=== PATIENT | female | born 1940 | race African-American/Black ===

== ENCOUNTER 2019-10-16 00:01 | Observation (INO) ==
[2019-10-16 00:22] LABS: BASO# 0.04 X1000 (0.0-0.2); BASO% 0.4 % (0.0-0.8); EOS# 0.44 X1000 (0.0-0.7); EOS% 4.5 % (0.0-10.0); HEMATOCRIT 39.7 % (37.0-47.0); HEMOGLOBIN 13.1 g/dL (12.0-16.0); IMM GRAN# 0.02 X1000 (0.0-0.04); IMM GRAN% 0.2 % (0.0-0.5); LYMPH# 1.15 X1000 (1.2-3.4); LYMPH% 11.7 % (20.5-51.1); MCH 28.3 PG (27-31); MCV 85.7 FL (81-99); MONO# 1.06 X1000 (0.11-0.59); MONO% 10.8 % (1.7-9.3); MPV 9.7 FL (7.4-10.4); NEUT# 7.12 X1000 (1.4-6.5); NEUT% 72.4 % (42.2-75.2); PLT 239 X1000 (130-400); RBC 4.63 XMIL (4.2-5.4); RDW 15.3 % (11.5-14.5); WBC 9.83 X1000 (4.8-10.8)
--- NOTE | 2019-10-16 00:26 | PROVIDER DOCUMENTATION ---
This chart was entered by Marci Marrero Scribe, acting as scribe for Bello Rubio MD. HPI-Neurological Disorder - General Chief Complaint: Stroke-Like Symptoms Stated Complaint: STROKE LIKE SYMPTOMS Time Seen by Provider: 10/16/19 00:03 Source: patient Allergies/Adverse Reactions: Patient Allergies Allergy/AdvReac Type Severity Reaction Status Date / Time Penicillins Allergy RASH Verified 10/16/19 01:21 Home Medications: Home Medication List Medication Instructions Recorded Confirmed Last Taken Type Apixaban [Eliquis] 2.5 mg PO DAILY 07/30/19 10/16/19 Unknown History Butalbital/Acetaminophen 1 ea PO 4XDAY PRN PRN #20 tab 07/30/19 10/16/19 Unknown Rx [Butalbital-Acetaminophn 50-300] Butalbital/Aspirin/Caffeine 1 ea PO 4XDAY PRN PRN #20 cap 07/30/19 10/16/19 Unknown Rx [Fiorinal 50-325-40 mg Capsule] Diltiazem HCl 60 mg PO TID 07/30/19 10/16/19 Unknown History Potassium Chloride 10 meq PO DAILY 07/30/19 10/16/19 Unknown History Travoprost 0.004% Oph Soln 1 ml BOTH EYES DAILY 07/30/19 10/16/19 Unknown His tory [Travatan 0.004% Oph Soln] - History of Present Illness-Neuro Nature of Presenting Problem: Pt is an 79 yobf with history of atrial fibrillation and CVA ,currently taking Eloquis, who presents by POV with her family after experiencing left sided weakness of her left face. Pt 's family reports that she was last normal this afternoon. Pt says that she got up to got to the bathroom to take out her teeth and that is when she noticed the new weakness on the left side of her face. Pt is alert,ambulatory, and nontoxic in appearance. Initial NIH stroke score of 1. Patient is not a candidate for thrombolytic therapy due to concurrent use of blo od thinner (Eloquis) and duration of symptoms. Followed by Dr. Del Valle and Dr. Morales. Severity: reports: mild Onset/Duration: reports: abrupt, just prior to arrival, 1-3 hours ago Timing: reports: still present Context: reports: facial droop (left) Approximate time patient was last seen normal?: 18:00 (family states that hayde wilks was last time she was normal) Any recent trauma/injury?: reports: none Character of Deficits: reports: new weakness (left sided facial droop in check) New weakness or altered sensation location:: reports: left facial (check) Cognitive Baseline: alert, oriented x3 Gait Baseline: walks without assistance Associated Symptoms: denies: decreased ability to walk or stand, fainting, dizziness, confusion, fever/chills, nausea, numbness in legs/feet, slurred speech, tingling in legs/feet, trouble walking, vomiting, vision changes Similar Symptoms Previously?: Yes (pt had a CVA in June 2019) Review of Systems - Adult - REVIEW OF SYSTEMS - ADULT Constitutional: denies: chills, fever Eyes: denies: decreased vision, blurred vision Ears, Nose, Mouth & Throat: reports: no symptoms reported Cardiovascular: denies: chest pain, syncope Respiratory: denies: cough, shortness of breath Gastrointestinal: denies: diarrhea, nausea, vomiting Genitourinary: reports: no symptoms reported Musculoskeletal: reports: no symptoms reported Integumentary: reports: no symptoms reported Neurological: reports: other (left sided facial droop in check) Psychiatric: reports: no symptoms reported Endocrine: reports: no symptoms reported Hematologic/Lymphatic: reports: no symptoms reported Allergic/Immunologic: reports: no symptoms reported All Other Systems: Reviewed and Negative Past History - Adult - PAST MEDICAL HISTORY-ADULT Review of Records: reports: Old Records Reviewed, Nursing Assessment Review, Medications Reviewed, Social history reviewed & non-contributory. Major Childhood Illnesses: reports: denies history Cardiovascular: reports: A-Fib, HTN Respiratory: reports: denies history Gastrointestinal: reports: cancer (colon), GERD Obstetrical/Gynecological: reports: denies history Genitourinary: reports: denies history Musculoskeletal: reports: denies history Neurological: reports: CVA Endocrine/Immune: reports: denies history Other Conditions: reports: denies history - PRIOR SURGERIES/PROCEDURES Surgical/Procedure History: reports: BTL, other (colectomy) - PRIOR HOSPITALIZATIONS Prior Hospitalizations: reports: none - IMMUNIZATION STATUS Childhood Immunizations: See Nurse Assessment Flu Vaccine: See Nurse Assessment - FAMILY HISTORY Family History: reviewed, not pertinent - SOCIAL HISTORY Smoking: cigarettes, less than 1 pack/day Provider spent 3-5 mins advising pt. on dangers of tobacco.: Discussed manners to quit use, and f/u contacts for add'l counseling. Substance Use: denies Living Situation: family Physical Exam- Neurological - Physical Exam-Neuro Initial Vital Signs Reviewed: Yes General Appearance: appears well, alert, no apparent distress Eye Exam: bilateral eye: normal inspection, PERRL, EOMI HENMT: normocephalic/atraumatic, moist mucous membranes Head Injury: no evidence of injury Neck: non-tender, full range of motion, supple Respiratory: chest non-tender, lungs clear, normal breath sounds, no respiratory distress Cardiovascular: normal peripheral pulses, irregularly irregular Abdominal Exam: non tender, soft Lymphatic: no adenopathy Extremity: normal range of motion, non-tender, normal gait, no pedal edema, no calf tenderness 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 Exam: normal hearing, normal speech, PERRL, facial droop (left sided check) Motor/Sensory: no motor deficit, no sensory deficit, no pronator drift Integumentary: normal color, normal turgor, warm/dry Psych/Mental Status: normal thought content, normal thought process, oriented x 3, depressed affect - Glascow Coma Scale Best Eye Response: (4) open spontaneously Best Verbal Response: (5) oriented Best Motor Response: (6) obeys commands Total Glascow Score: 15 Progress - PLAN OF CARE/RESULTS Progress/Plan/Lab Results: Vital Signs - 8 hr 10/16/19 00:10 10/16/19 00:12 Temperature 98.3 F Pulse Rate 75 Respiratory Rate 21 Blood Pressure 155/99 O2 Sat by Pulse Oximetry 97 Laboratory Results - last 24 hr 10/16/19 10/16/19 10/16/19 00:11 00:11 00:11 WBC 9.83 RBC 4.63 Hgb 13.1 Hct 39.7 MCV 85.7 MCH 28.3 MCHC 33.0 RDW Std Deviation 15.3 H Plt Count 239 MPV 9.7 Immature Gran % (Auto) 0.2 Neut % (Auto) 72.4 Lymph % (Auto) 11.7 L Millard % (Auto) 10.8 H Eos % (Auto) 4.5 Baso % (Auto) 0.4 Immature Gran # (Auto) 0.02 Neut # (Auto) 7.12 H Lymph # (Auto) 1.15 L Millard # (Auto) 1.06 H Eos # (Auto) 0.44 Baso # (Auto) 0.04 PT INR PTT (Actin FS) Sodium 143 Potassium 4.1 Chloride 107 Carbon Dioxide 21 L Anion Gap 15 BUN 17 Creatinine 0.8 Estimated GFR/1.73 m2 > 60 BUN/Creatinine Ratio 21 Glucose 168 H POC Glucose Calculated Osmolality 290 Calcium 8.9 Total Bilirubin 0.20 AST 28 ALT 16 Alkaline Phosphatase 113 H Troponin T High Sens 9 Total Protein 7.5 Albumin 4.1 Globulin 3.0 Albumin/Globulin Ratio 1.0 10/16/19 10/16/19 00:11 01:07 WBC RBC Hgb Hct MCV MCH MCHC RDW Std Deviation Plt Count MPV Immature Gran % (Auto) Neut % (Auto) Lymph % (Auto) Millard % (Auto) Eos % (Auto) Baso % (Auto) Immature Gran # (Auto) Neut # (Auto) Lymph # (Auto) Millard # (Auto) Eos # (Auto) Baso # (Auto) PT 14.3 INR 1.06 PTT (Actin FS) 39.9 Sodium Potassium Chloride Carbon Dioxide Anion Gap BUN Creatinine Estimated GFR/1.73 m2 BUN/Creatinine Ratio Glucose POC Glucose 124 H Calculated Osmolality Calcium Total Bilirubin AST ALT Alkaline Phosphatase Troponin T High Sens Total Protein Albumin Globulin Albumin/Globulin Ratio Orders Category Date Time Status Admit - [facility] Routine AdmDCTranf 10/16/19 03:02 Active Cardiac Monitoring DIRECTED Care 10/16/19 00:09 Active Finger Stick Blood Sugar (ED) DIRECTED Care 10/16/19 00:09 Completed Neurological Check Q4H Care 10/16/19 03:04 Ordered Oxygen Therapy- ED Nursing DIRECTED Care 10/16/19 00:09 Active Resuscitation Status Routine Care 10/16/19 03:02 Ordered Saline Loc NOW Care 10/16/19 00:09 Active Vital Signs Order Q 4-HR ASSESS Care 10/16/19 03:02 Ordered Z-Document. for Tele Applied ORDERED Care 10/16/19 03:03 Ordered NPO Diet 10/16/19 03:04 Ordered CHEST-PORTABLE [RAD] Stat Exams 10/16/19 00:[address] HEAD W/O CONTRAST [CT] Stat Exams 10/16/19 00:09 Taken CBC WITH ELECTRONIC DIFF [HEME] Stat Lab 10/16/19 00:11 Completed COMPREHENSIVE METABOLIC PANEL [CHEM] Stat Lab 10/16/19 00:11 Completed PROTIME WITH INR [COAG] Stat Lab 10/16/19 00:11 Completed PTT [COAG] Stat Lab 10/16/19 00:11 Completed TROPONIN T HIGH SENSITIVITY Stat Lab 10/16/19 00:11 Completed Oxygen Device Routine Oth 10/16/19 03:04 Active Telemetry [OM.EQ] Routine Oth 10/16/19 03:02 Active EKG [EKG] Stat Ther 10/16/19 00:09 Draft Transfer/Admit Order [TRANSFER] Routine Transfer 10/16/19 03:04 Ordered Result Diagrams: 10/16/19 00:11 10/16/19 00:11 - REASSESSMENT Reassessment #1 Time Reassessed: 01:10 Status: unchanged - EKG 1 Time of EKG reading by physician:: 01:10 EKG Read and Signed by:: Bello Rubio (No STEMI) EKG Interpretation (*Must complete 3 of following elements*): Abnormal Rate: 64 Rhythm: Atrial fibrillation Minerva: normal Comments: Nonspecific T wave abnomality - XRAY 1 XRAY Study: Chest Comparison with other Films: no changes (Dr. Rubio compared to June 2019 [facility] x-ray) XRAY Interpretation: Dr. Rubio: cardiomegaly - CT/MRI 1 CT Study: Head Impression: Normal ([facility] Deidre Patton DO; Impression: 1. No acute intracranial process. 2. Stable chronic changes.) - CONSULTS/PCP/HOSPITALIST Notification #1 *Consult/PCP/Hospitalist*: Dr. Del Valle Reason/Comments: called his phone at [phone] and left message #2 Consult: Dr. Daley Time Discussed: 02:50 Reason/Comments: admit to Dr. Del Valle who will see patient this am Consult Disposition: Admit Departure - Departure Date of Disposition Decision: 10/16/19 Time of Disposition Decision: 03:06 DIAGNOSIS: Facial weakness CVA (cerebral vascular accident) Qualifiers: CVA mechanism: unspecified Qualified Code(s): I63.9 - Cerebral infarction, unspecified Disposition: ADMITTED INPATIENT 09 Certified Medical Emergency: Emergent Condition: Stable Referrals and Follow-Ups: None,PCP [NON-STAFF PROVIDER] - - Critical Care Note This patient required my direct & personal management of CC.: No Attestation - Physician/ JENNIFER Attestation Patient care was provided by Advanced Practice Provider:: No The physician spent face to face time with patient:: Yes Advanced Practice Provider documentation review:: Supervising physician onsite and consulted in the evaluation and care of this patient. The physician did have a face to face encounter with the patient. - NIH Stroke Scale Level of Consciousness: 0-Alert LOC Questions (ask month and age): 0-Answers Both Correctly LOC Commands (ask to open & close eyes;make a fist, let go): 0-Obeys Both Correctly Best Gaze (horizontal eye movement): 0-Normal Visual (use finger movement, counting or visual threat): 0-No Visual Loss Facial Palsy (show teeth or raise eyebrows & close eyes tght: 1-Minor Paralysis (left sided check only) Motor Function-left arm: 0-Normal Motor Function-right arm: 0-Normal Motor Function-left le-Normal Motor Function-right le-Normal Limb Ataxia(ofwnju-ftsp-woqlas, or heel to bush): 0-No Ataxia Sensory(pin prick to face,arms,trunk,legs-compare side/side): 0-No Ataxia Best Language(name item/read sentence.Ex-Down to Earth): 0-No Aphasia Dysarthria(Pt read words or say words Ex.Mama,Tip-Top,Thanks: 0-Normal Articulation Extinction and Inattention: 0-Normal NIH Total Score: 1 Modified Hancock Score Criteria: 1-no significant disability despite symptoms This chart was documented by the indicated scribe, (Marci Marrero, Scribe) and accurately reflects the services I performed and decisions made by me, Bello Rubio MD, as attested by the provider's signature.
[2019-10-16 00:37] LABS: AGAP 15; ALBUMIN 4.1 g/dL (3.5-5.0); ALKALINE PHOSPHATASE 113 U/L (32-104); BUN 17 mg/dL (8-22); CALCIUM 8.9 mg/dL (8.8-10.2); CHLORIDE 107 mmol/L (98-107); COSMO 290; CREATININE 0.8 mg/dL (0.5-0.9); ESTIMATED GFR > 60; GLUCOSE 168 mg/dL (70-104); GOT 28 U/L (10-30); GPT 16 U/L (10-36); POTASSIUM 4.1 mmol/L (3.5-5.1); SODIUM 143 mmol/L (136-145); TCO2 21 mmol/L (25-35); TOTAL PROTEIN 7.5 g/dL (6.3-8.3)
[2019-10-16 00:51] LABS: INR 1.06; PROTIME 14.3 Seconds (11.0-16.0)
[2019-10-16 00:52] LABS: PTT 39.9 Seconds (22.3-41.8)
--- NOTE | 2019-10-16 02:20 | EKG Report ---
Test Performed on : 10/16/2019 01:03:27 AM Test Reason : CVA Blood Pressure : / mmHG Vent. Rate : 064 BPM Atrial Rate : 258 BPM P-R Int : 000 ms QRS Dur : 082 ms QT Int : 442 ms P-R-T Axes : 000 020 003 degrees QTc Int : 455 ms Atrial fibrillation. Nonspecific T wave abnormality Abnormal ECG When compared with ECG of 30-JUL-2019 04:45, (Unconfirmed) Criteria for Anterior infarct are no longer present Nonspecific T wave abnormality, improved in Lateral leads Unconfirmed Result
--- NOTE | 2019-10-16 05:25 | Diag Imaging Result Doc PS360 ---
EXAM: CHEST-PORTABLE HISTORY: CVA TECHNIQUE: Single view COMPARISON: 07/16/2019 FINDINGS: The lungs are well expanded. There is scarring in the right medial base. The heart is not enlarged. The vessels are not distended. There are no infiltrates. No effusion identified. IMPRESSION: Negative exam. Electronically signed by Louie Farooq 10/16/2019 5:22 AM
--- NOTE | 2019-10-16 05:32 | Diag Imaging Result Doc PS360 ---
EXAM: CT HEAD W/O CONTRAST HISTORY: left facial weakness TECHNIQUE: CT of the head without contrast COMPARISON: 08/09/2019 FINDINGS: No parenchymal hemorrhage. No epidural or subdural hematoma. No subarachnoid hemorrhage. Old right frontoparietal infarct. There are also chronic microvascular ischemic changes. No mass identified on this noncontrasted exam. No hydrocephalus. No sinus opacification. IMPRESSION: 1.No hemorrhage 2.Old right infarct with chronic ischemic changes 3.A preliminary report was given at 12:56 AM This exam was performed using automated exposure control, adjustment of mA or kV according to patient size, and/or use of iterative reconstruction technique. Electronically signed by Louie Farooq 10/16/2019 5:29 AM
[2019-10-16 06:25] LABS: URINE SOURCE CLEAN CATCH
[2019-10-16 06:31] LABS: BILIRUBIN URINE NEGATIVE (NEGATIVE); BLOOD URINE NEGATIVE (NEGATIVE); COLOR YELLOW; GLUCOSE URINE NEGATIVE (NEGATIVE); KETONE URINE NEGATIVE (NEGATIVE); LEUKOCYTES URINE NEGATIVE (NEGATIVE); NITRITE URINE NEGATIVE (NEGATIVE); PH URINE 6.5; PROTEIN URINE NEGATIVE (NEGATIVE); SP GRAVITY URINE 1.017; TURBIDITY URINE CLEAR (CLEAR); UROBILINOGEN URINE NORMAL (NORMAL)
[2019-10-16 06:33] LABS: UR EPITHELIAL CELLS <10 /HPF (<10); URINE BACTERIA NEGATIVE /HPF; URINE RBC <10 /HPF (<10); URINE WBC <10 /HPF (<10)
[2019-10-16 08:20] VITALS: BP 122/58
[2019-10-16] MEDS ORDERED: TYLENOL PO PRN ×2 (10:27→10:52)
--- NOTE | 2019-10-25 17:06 | DISCHARGE SUMMARY ---
ADMISSION DATE: 10/16/2019 DISCHARGE DATE: 10/16/2019 HISTORY/HOSPITAL COURSE: The patient is lady that I see in the office and she does quite well. Her home medicines include Eliquis 2.5 mg daily; diltiazem 60 mg t.i.d.; potassium chloride 10 mEq daily; Fiorinal q.6h. She was seen initially in the Emergency Room where she had a slightly facial drift. Her vital signs were: Blood pressure 155/99, pulse of 75, respiratory rate 21. While she was here, she had a CT of her head that showed no hemorrhages, an old right infarct with chronic ischemic changes. She had a chest x-ray that was read as normal. Her EKG showed atrial fibrillation with heart rate about 64, nonspecific ST segment changes. Her labs included a normal CBC. INR 1.06, PT 14.3. Chemistries: Glucose was slightly elevated. Carbon dioxide was a little bit high. Urinalysis was negative. She had an uneventful hospital stay. I did not appreciate any facial weakness. We expedited her discharge due to the recent viral issues. cc: Lewis Del Valle MD
--- NOTE | 2019-10-28 04:06 | HISTORY AND PHYSICAL ---
HISTORY OF PRESENT ILLNESS: An 79-year-old female that is a clinic patient of [facility], who presented to the emergency room with a background history of atrial fibrillation and a CVA on Eliquis. Family brought her in after she appeared to experience some left-sided weakness of her face, it seemed like it was drooping. The patient's family reports that she was last seen normal the afternoon of her presentation but states that she got up to go to the bathroom to take out her teeth and that is when she noticed a new weakness on the left side of her face. The patient is alert, ambulatory, nontoxic in appearance. Initial NIH score 1. The patient is not a candidate for thrombolytic therapy due to current use of blood thinners and also considering the duration of the symptoms. She is followed by myself and Dr. Morales for her atrial fibrillation. The symptoms appeared about an hour before they presented here at least and they were allegedly still present manifested primarily as a facial droop on the left. The last time had been seen normal was 1800 and states that afternoon was the last time she was normal. No trauma. New weakness in the left side of her face, new sensation changes in the left side of her face. She is alert and oriented and walks without assistance. In the moment, she has had no apparent symptoms currently. REVIEW OF SYSTEMS: No significant fever, chills, night sweats. Eyes: No change in vision acuity or field cuts. Ears, nose and throat: No pharyngitis, sinusitis, or otitis. Cardiovascular: She denies chest pain and syncope. Respiratory: She denies a cough, shortness of breath, wheezing. Gastrointestinal: No nausea, vomiting, diarrhea, or constipation. Genitourinary: No polyuria, polydipsia, dysuria, hematuria, urgency. Musculoskeletal: She apparently had a period of some left-sided facial weakness primarily that resolved fairly quickly, prior to arriving at the ER her symptoms were lessening. She did not have any significant problems walking or using her arms. No changes in her joints. Psychiatric: No history of any psychiatric illness. Endocrine: No polyuria, polydipsia, polyphagia, hypothermia. Skin: Clear. Neurological: See present illness, left-sided facial droop in the cheek, subtle, but has resolved pretty promptly. No bleeding from her anticoagulant therapy. ALLERGIES: No allergies. PAST MEDICAL HISTORY: She has a history of hypertension, atrial fibrillation. She has had a distant history of colon cancer, reflux. She has had a previous stroke. She has had bilateral tubal ligation and a colectomy. SOCIAL HISTORY: She smokes less than a pack a day. At the time of admission, she was felt to have a minor diminution in her appearance. Her temperature was 98.3, pulse was 75, respiratory rate is 21, BP 155/99, O2 saturation was 97%. Her CBC was normal on admission. Her electrolytes were all normal on admission. Alkaline phosphatase was 113. LFTs were all normal. Proteins were negative. PT was 106. Glucose 124. She had an EKG showed that atrial fibrillation, controlled rate of 64. Chest x-ray: Mild cardiomegaly unchanged. Head: No acute intracranial process, stable chronic changes. She was admitted with left facial weakness, and she was admitted. cc: Lewis Del Valle MD
== END 2019-10-16 12:00 | disposition home or self-care (01) ==
LOC: P.MEDSURG 00:01 → P.ED 00:01
PROVIDERS: ADMIT Internal Medicine; ATTEND Internal Medicine